=== PATIENT | female | born 1975 | race Caucasian/White ===

== ENCOUNTER 2016-12-27 15:30 | Inpatient (IN) | payer BC ==
--- NOTE | ~2016-12-27 | HP ---
History And Physical [facility] [address] [place]. [address] NAME: CLARENCE YIP : 77 STATUS : ADM Ursula PAT#: [id number] AGE: 41 ADM/REG DATE : 12/27/16 MR#: [id number] REPORT SERV DATE: 12/27/16 DICTATED BY: GAVIN MATTHEWS DATE: 12/27/16 REPORT STATUS : Draft TRANSCRIBED BY: MODL DATE: 12/27/16 DATE OF ADMISSION: 12/27/2016 CHIEF COMPLAINT: Cough, shortness of breath. HISTORY OF PRESENT ILLNESS: The patient is a 41-year-old female. She has a past medical history significant for borderline hypertension and allergies. She takes an allergy pill Zyrtec and diuretic hydrochlorothiazide. She has been complaining of a chronic cough for the past three months, mostly dry and nonproductive, some shortness of breath. So over the past week and a half, it seemed to get worse, more congestion, more short of breath. She had a fever up to 101 earlier in the week. She called a help line through her insurance, was diagnosed with a sinus infection. Given a Z-Kostas on Saturday and follow up with her physician if her symptoms did not improve. She completes the Z-Kostas today, but her symptoms were not improving, although she has had no further fever. She presented the emergency department. She was noted to be hypoxic, but responded well to O2. She has been given nebulizer, steroids, and [facility]. PAST MEDICAL HISTORY: As covered above. PAST SURGICAL HISTORY: None. MEDICATIONS: Hydrochlorothiazide 12.5 and Zyrtec. ALLERGIES: NO KNOWN DRUG ALLERGIES. FAMILY HISTORY: Father passed, CVA. Mother has multiple problems including diabetes, hypertension, cardiac disease, ovarian cancer. SOCIAL HISTORY: Nondrinker, nonsmoker. REVIEW OF SYSTEMS: HEENT: She is having some mild sinus symptoms or sore throat. CARDIOVASCULAR: No chest pain, palpitations. PULMONARY: As covered in HPI. GI: No nausea, vomiting. : She has had some dysuria. NEUROMUSCULOSKELETAL: No complaints. Otherwise, 10-point review of systems is negative. PHYSICAL EXAMINATION: VITAL SIGNS: BP 137/71, temperature 98.6, initial pulse was 114, respirations 20. GENERAL: She is awake, alert, appropriate. HEENT: Normocephalic, atraumatic. Sclerae nonicteric. NECK: Supple. HEART: Regular rate and rhythm. History And Physical [address] [address] NAME: CLARENCE YIP : 77 STATUS : ADM Ursula PAT#: [id number] AGE: 41 ADM/REG DATE : 12/27/16 MR#: [id number] REPORT SERV DATE: 12/27/16 DICTATED BY: GAVIN MATTHEWS DATE: 12/27/16 REPORT STATUS : Draft TRANSCRIBED BY: FELIX DATE: 12/27/16 LUNGS: Show coarse breaths. Mild expiratory wheezing throughout. ABDOMEN: Obese, benign. EXTREMITIES: No clubbing, cyanosis, or edema. LAB: White count 10.3, H and H are 10.4 and 35.8, platelets 292. Sodium 141, potassium 3.6, chloride 100, CO2 of 33, BUN and creatinine 9 and 0.63 with a glucose of 142. UA shows 5 wbc's, rare bacteria, trace leukocyte. Chest x-ray was read as negative. EKG, sinus tach, no acute changes. ASSESSMENT: Cough with shortness of breath, subsequent hypoxia with recent fever. Differential would be bacterial illness, viral illness, superimposed allergies. PLAN: The patient has been admitted. We will continue Solu-Medrol. We will continue antibiotics. We will continue nebulizer treatments, procalcitonin, sputum. TLF/MODL Gavin Matthews M.D. / [id number] CC: Lenny Rose Jr, MD
--- NOTE | ~2016-12-27 | DS ---
Discharge Summary [facility] [address] [place]. [address] NAME: CLARENCE YIP : 77 STATUS : ADM Ursula PAT#: [id number] AGE: 41 ADM/REG DATE : 12/27/16 MR#: [id number] REPORT SERV DATE: 12/31/16 DICTATED BY: MIKE OHARA DATE: 12/30/16 REPORT STATUS : Draft TRANSCRIBED BY: FELIX DATE: 12/30/16 ADMISSION DATE: 12/27/2016 DISCHARGE DATE: 12/31/2016 PROCEDURES DONE: 12/27/2016, chest x-ray: No acute cardiopulmonary processes radiographically evident. REASON FOR ADMISSION: Cough and shortness of breath. HISTORY OF HOSPITAL STAY: 41-year-old, white female with past medical history of hypertension, seasonal allergies, presenting with cough and shortness of breath for the past three months. The patient states she has been having dry productive cough for quite some time, approximately 3 months. Unfortunately, within the past week and a half she started having shortness of breath associated. The patient was admitted for further evaluation since the patient was found to be hypoxic. The patient's initial blood gas at the time of the admission shows pCO2 of 49, PaO2 of 56, bicarb of 31.7, O2 sat of 88.1, pH is 7.43. With these readings, the patient was then admitted for further evaluation and treatment. The patient was started on IV steroids. The patient improved with DuoNeb and steroids. Dulera was added on the second day of admission and the patient's breathing greatly improved. The patient's O2 sat on room air was 96. Previously, the patient was requiring 2 L with O2 saturation of 94. The patient has also been advised that due to her morbid obesity, BMI of 64, she is a good candidate for obstructive sleep apnea. The patient is very motivated upon discharge to follow up with Dr. Vazquez for a sleep study. The patient advised to follow up with primary care first with a referral to Dr. Vazquez's office for a sleep study. DISPOSITION: The patient feels fine, no complaint. ACTIVITIES: As tolerated. DIET: Low fat. INSTRUCTION UPON DISCHARGE: The patient to follow up with primary care physician within one to two weeks' time with a possible sleep study. MEDICATION UPON DISCHARGE: 1. Hydrochlorothiazide 12.5 mg p.o. at bedtime. 2. Dulera 200/50 two puffs b.i.d. 3. Albuterol inhaler two puffs q.4 hours p.r.n. DIAGNOSES UPON DISCHARGE: 1. Cough and shortness of breath secondary to bronchitis. 2. Acute hypoxemic respiratory failure secondary to problem #1. 3. Morbid obesity. 4. Hypertension. 5. Allergies. Discharge Summary [address] [address] NAME: CLARENCE YIP : 77 STATUS : ADM Ursula PAT#: [id number] AGE: 41 ADM/REG DATE : 12/27/16 MR#: [id number] REPORT SERV DATE: 12/31/16 DICTATED BY: MIKE OHARA DATE: 12/30/16 REPORT STATUS : Draft TRANSCRIBED BY: FELIX DATE: 12/30/16 BRENNA/FELIX Mike Ohara MD / [id number] CC: Mike Ohara MD
[~2016-12-27 15:30] MED LIST: HYDROCHLOROT12.5 MG PO; ZYRTEC ALLGY10 MG PO
[2016-12-27 15:56] LABS: BASOPHILS 0.3 %; BASOPHILS ABSOLUTE 0.03 10/3/uL (0.0-0.16); EOSINOPHILS 0.9 %; EOSINOPHILS ABSOLUTE 0.09 10/3/uL (0.0-0.53); IMMATURE GRANULOCYTES 0.3 %; IMMATURE GRANULOCYTES ABSOLUTE 0.03 10/3/uL (0.0-0.11); LYMPHOCYTES 15.9 %; LYMPHOCYTES ABSOLUTE 1.64 10/3/uL (0.67-4.30); MEAN CORPUS HGB CONC 29.1 g/dL (32.0-36.0); MEAN CORPUSCULAR HEMOGLOB 22.2 pg (26.0-34.0); MEAN CORPUSCULAR VOLUME 76.5 fL (80-100); MEAN PLATELET VOLUME 8.8 fL (9.2-13.0); MONOCYTES ABSOLUTE 0.83 10/3/uL (0.21-1.20); NEUTROPHILS 74.6 %; NEUTROPHILS ABSOLUTE 7.72 10/3/uL (2.02-8.40); PLATELET COUNT 292 10/3/uL (150-400); RBC DISTRIBUTION WIDTH 16.3 % (12.0-16.0); RED CELL COUNT 4.68 10/6/uL (4.0-5.6); WHITE BLOOD CELLS 10.3 10/3/uL (4.5-10.5)
[2016-12-27 15:58] LABS: HEMATOCRIT 35.8 % (36.0-48.0); HEMOGLOBIN 10.4 g/dL (12.0-16.0)
[2016-12-27 15:59] LABS: MANUAL DIFF NO %
[2016-12-27 16:13] LABS: A/G RATIO 0.6 (0.7-1.9); ALBUMIN 2.8 G/DL (3.5-5.0); ALKALINE PHOSPHATASE 88 U/L (45-117); BUN (BLOOD UREA NITROGEN) 9 MG/DL (6-23); CALCIUM, SERUM 8.4 MG/DL (8.5-10.4); CHLORIDE, SERUM 100 MMOL/L (96-112); CO2 (CARBON DIOXIDE) 33 MMOL/L (24-34); CREATININE 0.63 MG/DL (0.55-1.02); GFR AFRICAN AMERICAN 130 ML/MIN (>=60); GFR NON AFRICAN AMERICAN 112 ML/MIN (>=60); GLOBULIN 4.7 G/DL (2.5-4.1); GLUCOSE, SERUM 142 MG/DL (60-99); POTASSIUM, SERUM 3.6 MMOL/L (3.5-5.3); SGOT(AST) 11 U/L (5-40); SGPT(ALT) 20 U/L (5-65); SODIUM, SERUM 141 MMOL/L (135-148); TOTAL BILIRUBIN 0.5 MG/DL (0-1.2); TOTAL PROTEIN 7.5 G/DL (6.0-8.5)
[2016-12-27 17:44] LABS: ASCORBIC ACID (UR NOT ORDER) NEG (NEG); BILIRUBIN, URINE NEGATIVE (NEG); ER URINALYSIS TAT 0 Hrs 13 Mins; KETONE, URINE NEGATIVE (NEG); LEUKOCYTE ESTERASE(NOT OR TRACE (NEG); NITRITE (URINE) NEG (NEG); WBC (NOT ORDERED) (RFLEX) 5 (0-5)
[2016-12-27 18:11] LABS: ALLENS TEST Pos; BE (BASE EXCESS) 6.4 MEQ/L (0 +/- 2.5); CARBOXYHEMOGLOBIN 1.5 % (0-3); HCO3 (ACTUAL BICARBONATE) 31.7 MEQ/L (23-27); INSTRUMENT SERIAL # 8087; METHEMOGLOBIN 0.2 % (0-3); O2 CONTENT 13.4 VOL% (18-24); OPERATOR ID 14335; PCO2 (CO2 TENSION) 49 MMHG (35-45); PO2 (O2 TENSION) 56 MMHG (79-93); SAMPLE Arterial; pH 7.43 (7.37-7.43)
[2016-12-27] MEDS ORDERED: HYDROCHLOROT12.5 MG PO (18:18)
[2016-12-27] MEDS ORDERED: ZYRTEC ALLGY10 MG PO (18:18)
[2016-12-27] MEDS ORDERED: ZITHROMAX500 MG PO (18:19)
[2016-12-27] MEDS ORDERED: TESSALON200 MG PO (18:20)
[2016-12-27] MEDS ORDERED: [UNRECOGNIZED DRUG - OTHER] PO (18:21)
[2016-12-27] MEDS ORDERED: NYQUIL COLD PO (18:21)
[2016-12-27] MEDS ORDERED: [UNRECOGNIZED DRUG - OTHER] PO (18:22)
[2016-12-27] MEDS ORDERED: MUCINEX DM PO (18:22)
[2016-12-27] MEDS ORDERED: COUGH PO (18:22)
[2016-12-27] MEDS ORDERED: DELSYM30 MG/5 ML PO (18:23)
[2016-12-27] MEDS ORDERED: FLONASE NAS (18:23)
[2016-12-28 07:48] LABS: PROCALCITONIN <0.05 ng/mL (<0.5)
[2016-12-28 08:29] LABS: BUN (BLOOD UREA NITROGEN) 9 MG/DL (6-23); CHLORIDE, SERUM 102 MMOL/L (96-112); CO2 (CARBON DIOXIDE) 32 MMOL/L (24-34); CREATININE 0.62 MG/DL (0.55-1.02); GFR AFRICAN AMERICAN 131 ML/MIN (>=60); GFR NON AFRICAN AMERICAN 113 ML/MIN (>=60); GLUCOSE, SERUM 185 MG/DL (60-99); POTASSIUM, SERUM 4.3 MMOL/L (3.5-5.3); SODIUM, SERUM 141 MMOL/L (135-148)
[2016-12-30 01:02] LABS: INFLUENZA A SCREEN NEGATIVE (NEGATIVE); INFLUENZA B SCREEN NEGATIVE (NEGATIVE)
[2016-12-30 03:50] LABS: INSTRUMENT SERIAL # 8087; PCO2 (CO2 TENSION) 54 MMHG (35-45); PO2 (O2 TENSION) 85 MMHG (79-93); pH 7.41 (7.37-7.43)
[2016-12-30 03:51] LABS: CARBOXYHEMOGLOBIN 1.2 % (0-3); DEVICE NC; HCO3 (ACTUAL BICARBONATE) 32.9 MEQ/L (23-27); HEMOBLOGIN CONTENT 11.3 G/DL (12-16); METHEMOGLOBIN 0.2 % (0-3); O2 CONTENT 15.2 VOL% (18-24); OPERATOR ID 334499; SAMPLE Arterial
[2016-12-30 05:31] LABS: BASOPHILS 0.1 %; BASOPHILS ABSOLUTE 0.01 10/3/uL (0.0-0.16); EOSINOPHILS 0 %; HEMOGLOBIN 10.6 g/dL (12.0-16.0); IMMATURE GRANULOCYTES 0.8 %; IMMATURE GRANULOCYTES ABSOLUTE 0.09 10/3/uL (0.0-0.11); LYMPHOCYTES 11.6 %; LYMPHOCYTES ABSOLUTE 1.28 10/3/uL (0.67-4.30); MANUAL DIFF NO %; MEAN CORPUS HGB CONC 29.4 g/dL (32.0-36.0); MEAN CORPUSCULAR HEMOGLOB 22.4 pg (26.0-34.0); MEAN CORPUSCULAR VOLUME 75.9 fL (80-100); MEAN PLATELET VOLUME 8.6 fL (9.2-13.0); MONOCYTES 7.9 %; MONOCYTES ABSOLUTE 0.87 10/3/uL (0.21-1.20); NEUTROPHILS 79.6 %; PLATELET COUNT 324 10/3/uL (150-400); RBC DISTRIBUTION WIDTH 16.2 % (12.0-16.0); RED CELL COUNT 4.74 10/6/uL (4.0-5.6); WHITE BLOOD CELLS 11.1 10/3/uL (4.5-10.5)
[2016-12-30 05:45] LABS: A/G RATIO 0.6 (0.7-1.9); ALBUMIN 2.7 G/DL (3.5-5.0); ALKALINE PHOSPHATASE 86 U/L (45-117); CALCIUM, SERUM 8.7 MG/DL (8.5-10.4); CHLORIDE, SERUM 99 MMOL/L (96-112); CO2 (CARBON DIOXIDE) 35 MMOL/L (24-34); CREATININE 0.53 MG/DL (0.55-1.02); GFR AFRICAN AMERICAN 138 ML/MIN (>=60); GFR NON AFRICAN AMERICAN 119 ML/MIN (>=60); GLOBULIN 4.4 G/DL (2.5-4.1); PHOSPHORUS, SERUM 3.5 MG/DL (2.5-4.5); POTASSIUM, SERUM 3.7 MMOL/L (3.5-5.3); SGOT(AST) 13 U/L (5-40); SGPT(ALT) 24 U/L (5-65); SODIUM, SERUM 141 MMOL/L (135-148); TOTAL BILIRUBIN 0.2 MG/DL (0-1.2); TOTAL PROTEIN 7.1 G/DL (6.0-8.5)
[2016-12-30 05:46] LABS: BUN (BLOOD UREA NITROGEN) 16 MG/DL (6-23); GLUCOSE, SERUM 128 MG/DL (60-99)
[2016-12-31] MEDS ORDERED: HYDROCHLOROT12.5 MG (10:37)
[2016-12-31] MEDS ORDERED: DULERA 200 MCG/13 GM INH (10:39)
== END 2016-12-31 12:20 | disposition home or self-care (01) | DRG 189 ==
LOC: ER 15:30 → CDU1 19:58 → CDU2 20:26 → 7NO 12-30 17:30
PROVIDERS: Hospitalist; Internal Medicine; Nurse Practitioner
DX: J96.01 Acute respiratory failure with hypoxia (principal); Z68.44 Body mass index [BMI] 60.0-69.9, adult; I10 Essential (primary) hypertension; J40 Bronchitis, not specified as acute or chronic; E66.01 Morbid (severe) obesity due to excess calories
CPT/HCPCS: 36600; 71020; 80048; 80053; 81001; 82805; 83735; 84100; 84145; 85025; 87040; 87070; 87205; 87449; 87804; 93005; 94640; 96365; 96372; 96374; 96375; 96376; 99291; A9270-GY; G0378; J1956; J2920; J2930